=== PATIENT | female | born 1930 | race Caucasian/White ===

== ENCOUNTER 2018-05-10 11:03 | Inpatient (IN) | payer MEDICARE ==
[~2018-05-10] VITALS: Ht 160 cm; Wt 55.3 kg
[2018-05-10 12:38] LABS: BASOPHILS % 0.9 % (0.0-2.0); HEMATOCRIT. 46.9 % (36.0-48.0); HEMOGLOBIN. 15.3 g/dL (12.0-16.0); LYMPHOCYTES % 29.8 % (20.0-50.0); MEAN PLATELET VOLUME 8.4 fl (7.4-10.4); NEUTROPHILS % 57.3 % (40.0-76.0); PLATELET 299 x1000/uL (130-400); RED BLOOD CELL COUNT 5.27 mill/uL (4.2-5.4); RED CELL DISTRIBUTION WIDTH 15.3 % (11.6-14.6)
[2018-05-10 12:46] LABS: CHLORIDE 106 mEq/L (98-107)
[2018-05-10 13:23] LABS: CLARITY URINE CLEAR (CLEAR); COLOR URINE YELLOW (YELLOW); KETONES URINE 2+ (NEGATIVE); LEUKOCYTE ESTERASE URINE NEGATIVE (NEGATIVE); NITRITE URINE NEGATIVE (NEGATIVE); OCCULT BLOOD URINE NEGATIVE (NEGATIVE); PH URINE 7.5 (4.5-8.0); PROTEIN URINE NEGATIVE (NEGATIVE); SPECIFIC GRAVITY URINE 1.013 (1.005-1.030); UROBILINOGEN URINE 0.2 E.U./dL (0.2-1.0)
[2018-05-10] MEDS ORDERED: SODIUM CHLORIDE 0.9% 1,000 ML IV ONE (14:00)
[2018-05-10 14:31] LABS: PROTHROMBIN TIME 10.4 sec (9.1-11.1)
[2018-05-10] MEDS ORDERED: ACETAMINOPHEN 325MG TABLET PO NR (19:15)
[2018-05-10] MEDS: SODIUM CHLORIDE 0.45% 1,000 ML IV SCH (22:45)
[2018-05-10] MEDS: HYDRALAZINE HCL 50MG TABLET PO SCH (22:50)
[2018-05-11] VITALS (9 sets, daily range): BP systolic 121–150; BP diastolic 53–72
[2018-05-11] MEDS: HYDRALAZINE HCL 50MG TABLET PO SCH ×3 (07:30→21:16)
[2018-05-11] MEDS: NIFEDIPINE XL 60MG TAB PO SCH (09:11)
[2018-05-11] MEDS: ASPIRIN 81MG TABLET PO SCH (09:11)
[2018-05-11] MEDS: ENOXAPARIN 30MG/0.3ML SYR SUBCUT SCH (10:09)
[2018-05-11] MEDS ORDERED: HYDROCODONE/ACETAMINOPHEN 5/325MG TABLET PO NR (11:30)
[2018-05-11] MEDS: SODIUM CHLORIDE 0.45% 1,000 ML IV SCH (15:25)
[2018-05-11 15:29] LABS: *BARBITURATES SCREEN URINE NEGATIVE (NEGATIVE); *BENZODIAZEPINES SCREEN URINE NEGATIVE (NEGATIVE)
[2018-05-11 15:30] LABS: *AMPHETAMINES SCREEN URINE NEGATIVE (NEGATIVE); *COCAINE SCREEN URINE NEGATIVE (NEGATIVE); METHADONE URINE SCREEN NEGATIVE (NEGATIVE); OPIATES URINE SCREEN PRESUMTIVE POSITIVE (NEGATIVE); PHENCYCLIDINE URINE SCREEN NEGATIVE (NEGATIVE)
[2018-05-11 15:31] LABS: CANNABINOID URINE SCREEN NEGATIVE (NEGATIVE)
[2018-05-11] MEDS ORDERED: DOCUSATE SODIUM 100MG CAPSULE PO PRN (18:00)
[2018-05-11] MEDS ORDERED: DIPHENHYDRAMINE 50MG/ML VIAL IV PRN (18:00)
[2018-05-11] MEDS ORDERED: ACETAMINOPHEN 650MG SUPP PR PRN (18:00)
[2018-05-11] MEDS ORDERED: ONDANSETRON HCL 4MG/2ML INJ IV PRN (18:00)
[2018-05-11 21:00] LABS: HEMATOCRIT 42.4 % (36.0-48.0); HEMOGLOBIN 13.9 g/dL (12.0-16.0); MEAN CORPUSCULAR HEMOGLOBIN 29.1 pg (28.0-32.0); MEAN CORPUSCULAR VOLUME 88.8 fL (81.0-99.0); PLATELET 277 x1000/uL (130-400); RED BLOOD CELL COUNT 4.77 mill/uL (4.2-5.4); RED CELL DISTRIBUTION WIDTH 15.4 % (11.6-14.6)
[2018-05-12] VITALS: BP 111/53
[2018-05-12] MEDS: ACETAMINOPHEN 325MG TABLET PO PRN ×2 (01:24→23:49)
[2018-05-12 04:00] VITALS: BP 117/55
[2018-05-12 06:31] LABS: HEMATOCRIT 45.1 % (36.0-48.0); HEMOGLOBIN 14.8 g/dL (12.0-16.0); MEAN CORPUSCULAR HEMOGLOBIN 29.3 pg (28.0-32.0); MEAN CORPUSCULAR VOLUME 89.2 fL (81.0-99.0); PLATELET 260 x1000/uL (130-400); RED BLOOD CELL COUNT 5.05 mill/uL (4.2-5.4); RED CELL DISTRIBUTION WIDTH 15.7 % (11.6-14.6)
[2018-05-12] MEDS: HYDRALAZINE HCL 50MG TABLET PO SCH ×3 (06:42→21:39)
[2018-05-12 08:00] VITALS: BP 137/50
[2018-05-12] MEDS: ASPIRIN 81MG TABLET PO SCH (08:40)
[2018-05-12] MEDS: NIFEDIPINE XL 60MG TAB PO SCH (08:41)
[2018-05-12] MEDS: ENOXAPARIN 30MG/0.3ML SYR SUBCUT SCH (08:41)
[2018-05-12] MEDS ORDERED: LEVOFLOXACIN 500MG PREMIX 100 ML IV SCH ×2 (11:15→13:30)
[2018-05-12 12:00] VITALS: BP 141/54
[2018-05-12] MEDS ORDERED: POTASSIUM CHLORIDE 20MEQ TABLET SR PO NR (12:00)
[2018-05-12] MEDS ORDERED: POTASSIUM CHLORIDE 20MEQ TABLET SR PO SCH (12:05)
[2018-05-12 16:00] VITALS: BP 129/60
[2018-05-12] MEDS ORDERED: LEVOFLOXACIN 500MG TABLET PO NR (17:00)
[2018-05-12 20:00] VITALS: BP 145/64
[2018-05-13] MEDS: SODIUM CHLORIDE 0.45% 1,000 ML IV SCH (00:45)
[2018-05-13 04:00] VITALS: BP 144/61
[2018-05-13] MEDS: HYDRALAZINE HCL 50MG TABLET PO SCH (06:17)
[2018-05-13 07:01] LABS: HEMATOCRIT 42.3 % (36.0-48.0); HEMOGLOBIN 13.6 g/dL (12.0-16.0); MEAN CORPUSCULAR HEMOGLOBIN 28.8 pg (28.0-32.0); MEAN CORPUSCULAR VOLUME 89.5 fL (81.0-99.0); PLATELET 258 x1000/uL (130-400); RED BLOOD CELL COUNT 4.73 mill/uL (4.2-5.4); RED CELL DISTRIBUTION WIDTH 15.2 % (11.6-14.6)
[2018-05-13 08:00] VITALS: BP 128/55
[2018-05-13] MEDS: NIFEDIPINE XL 60MG TAB PO SCH (09:00)
[2018-05-13] MEDS: ASPIRIN 81MG TABLET PO SCH (09:50)
[2018-05-13] MEDS: ENOXAPARIN 30MG/0.3ML SYR SUBCUT SCH (09:50)
[2018-05-13] MEDS ORDERED: LEVOFLOXACIN 250MG PREMIX 50 ML IV SCH (11:00)
[2018-05-13] MEDS ORDERED: HYDROCODONE/ACETAMINOPHEN 5/325MG TABLET PO PRN (11:15)
[2018-05-13] MEDS ORDERED: LEVOFLOXACIN 250MG TABLET PO SCH ×2 (11:30)
[2018-05-13 12:00] VITALS: BP 124/57
[2018-05-13 13:09] VITALS: BP 124/57
[2018-05-13 16:00] VITALS: BP 140/71
== END 2018-05-13 16:04 | DRG 74 ==
LOC: EDBD 11:03 → ER 11:03 → 8WST 14:33 → EDBEDREQSVC 14:37 → EDBEDREQ 14:37 → ENRESERV 22:44 → 6EST 23:30 → 8WST 05-11 14:43 → 6EST 05-13 00:50
PROVIDERS: ADMIT Internal Medicine; ATTEND Internal Medicine
DX: G90.8 Other disorders of autonomic nervous system (principal); M48.55XA Collapsed vertebra, not elsewhere classified, thoracolumbar region, initial encounter for fracture; J98.11 Atelectasis; E87.5 Hyperkalemia; F03.90 Unspecified dementia, unspecified severity, without behavioral disturbance, psychotic disturbance, mood disturbance, and anxiety; K57.90 Diverticulosis of intestine, part unspecified, without perforation or abscess without bleeding; Z66 Do not resuscitate; R62.7 Adult failure to thrive; E87.6 Hypokalemia; R26.9 Unspecified abnormalities of gait and mobility; W19.XXXA Unspecified fall, initial encounter; Y93.89 Activity, other specified; Y92.89 Other specified places as the place of occurrence of the external cause; Y99.8 Other external cause status
CPT/HCPCS: 36415; 71045; 74176; 80048; 80305; 83605; 83880; 84484; 85027; 93005; 93306; 96374; 97162; 99285; C1893; J1650; J1956; J7030; J7050